=== PATIENT | male | born 1950 | race Caucasian/White ===

== ENCOUNTER 2018-09-09 09:32 | Day surgery (SDC) | payer MEDICARE ==
[~2018-09-09] VITALS: Ht 175.3 cm; Wt 85.5 kg
[~2018-09-09 09:32] MED LIST: ACIT10CA PO; AMLO5 PO; Prilosec Otc20 MG PO; TAMS.4ER PO
== END 2018-09-09 12:09 | disposition home or self-care (01) ==
LOC: ORSCSDS 09:32
PROVIDERS: Internal Medicine Gastroenterology
PROC: 0DBL8ZX Excision of Transverse Colon, Via Natural or Artificial Opening Endoscopic, Diagnostic (ICD-10-PCS; principal; 2018-09-09 10:45)
PROC: 0DBK8ZX Excision of Ascending Colon, Via Natural or Artificial Opening Endoscopic, Diagnostic (ICD-10-PCS; principal; 2018-09-09 10:45)
DX: Z12.11 Encounter for screening for malignant neoplasm of colon (principal); D12.4 Benign neoplasm of descending colon; K64.8 Other hemorrhoids; K57.30 Diverticulosis of large intestine without perforation or abscess without bleeding; Z86.010 Personal history of colon polyps; Z80.0 Family history of malignant neoplasm of digestive organs; I10 Essential (primary) hypertension; Z79.899 Other long term (current) drug therapy
CPT/HCPCS: 88305; J2704; J7120

== ENCOUNTER → 2021-01-31 | Outpatient (CLI) | payer MEDICARE | LOC: LAB SHORT 12:36 → LAB 12:36 | DX: D48.5 Neoplasm of uncertain behavior of skin (principal); C44.311 Basal cell carcinoma of skin of nose | CPT/HCPCS: 88305 ==

== ENCOUNTER → 2021-03-31 | Outpatient (CLI) | payer MEDICARE | END | disposition home or self-care (01) | LOC: LAB SHORT 15:02 | DX: C44.319 Basal cell carcinoma of skin of other parts of face (principal) | CPT/HCPCS: 88305 ==

== ENCOUNTER → 2021-04-19 | Outpatient (CLI) | payer MEDICARE | END | disposition home or self-care (01) | LOC: LAB SHORT 14:45 | DX: C44.310 Basal cell carcinoma of skin of unspecified parts of face (principal) | CPT/HCPCS: 88305 ==

== ENCOUNTER → 2022-01-26 | Outpatient (CLI) | payer MEDICARE | LOC: PLD 11:34 → LAB SHORT 11:34 | DX: C44.519 Basal cell carcinoma of skin of other part of trunk (principal) | CPT/HCPCS: 88305 ==